=== PATIENT | female | born 1995 | race Caucasian/White ===

== ENCOUNTER 2022-04-20 08:26 | Day surgery (SDC) | payer OTHER ==
[~2022-04-20] VITALS: Ht 160 cm; Wt 74.4 kg
[2022-04-20 08:42] VITALS: PULSE 86; TEMP 98
[2022-04-20] MEDS ORDERED: MAXALT MLT10 MG/TAB PO (08:53)
[2022-04-20] MEDS ORDERED: MINOXIDIL 2.5 PO (08:54)
[2022-04-20] MEDS ORDERED: AVODART 0.5MG0.5 MG PO (08:54)
[2022-04-20 10:22] VITALS: BP 108/63; PULSE 84; TEMP 97.6
[2022-04-20 10:37] VITALS: BP 108/69; PULSE 74
--- NOTE | 2022-04-20 10:50 | NUR ---
1022- PATIENT RETUR[place] [facility] [place] [facility] [place]. PT AWAKE AND ALERT. RESPIRATIONS UNLABORED. AMBULATED TO RECLINER CHAIR WITH 2:1 SBA. PT DENIES NAUSEA OR ABDOMINAL PAIN. HOOKED UP TO MONITOR AND VS OBTAINED. CALL LIGHT AT SIDE AND FRIEND PRESENT. 1026- DR. SERRATO IN ROOM SPEAKING WITH PATIENT. 1033- PATIENT TOLERATING DRINK AND SNACK WITHOUT NAUSEA OR DIFFICULTY SWALLOWING. 1045- D/C INSTRUCTIONS REVIEWED WITH PATIENT. PT VERBALIZED UNDERSTANDING AND A COPY OF INSTRUCTIONS PROVIDED IN D/C FOLDER. 1100- PATIENT DISCHARGED FROM UNIT VIA W/C TO A PERSONAL VEHICLE. PT LEFT HOSPITAL IN STABLE CONDITION.
[2022-04-20 10:52] VITALS: BP 104/68; PULSE 70
== END 2022-04-20 11:00 | disposition home or self-care (01) ==
LOC: SDCO 08:26
DX: K29.50 Unspecified chronic gastritis without bleeding (principal); K44.9 Diaphragmatic hernia without obstruction or gangrene
CPT/HCPCS: J2704; J7120